=== PATIENT | female | born 1980 | race Caucasian/White ===

== ENCOUNTER 2021-01-28 09:04 | Outpatient (CLI) | payer BC | END 2021-01-28 09:05 | disposition home or self-care (01) | LOC: CSHMAMMO 09:04 | PROVIDERS: ATTEND Family Medicine | DX: Z12.31 Encounter for screening mammogram for malignant neoplasm of breast (principal); Z85.820 Personal history of malignant melanoma of skin; Z80.3 Family history of malignant neoplasm of breast; Z98.890 Other specified postprocedural states | CPT/HCPCS: 77063; 77067 ==

== ENCOUNTER 2023-03-19 13:06 | Outpatient (CLI) | payer OTHER | END 2023-03-19 13:07 | disposition home or self-care (01) | LOC: CSHMAMMO 13:06 | PROVIDERS: ATTEND Family Medicine | DX: Z12.31 Encounter for screening mammogram for malignant neoplasm of breast (principal); Z80.3 Family history of malignant neoplasm of breast; Z85.820 Personal history of malignant melanoma of skin; Z98.890 Other specified postprocedural states | CPT/HCPCS: 77063; 77067 ==

== ENCOUNTER 2024-03-21 09:26 | Outpatient (CLI) | payer BC | END 2024-03-21 09:27 | disposition home or self-care (01) | LOC: CSHMAMMO 09:26 | PROVIDERS: ATTEND Family Medicine | DX: Z12.31 Encounter for screening mammogram for malignant neoplasm of breast (principal); Z80.3 Family history of malignant neoplasm of breast; Z85.820 Personal history of malignant melanoma of skin; Z98.890 Other specified postprocedural states | CPT/HCPCS: 77063; 77067 ==